=== PATIENT | male | born 1965 | race Caucasian/White ===

== ENCOUNTER 2017-12-09 02:33 | Observation (INO) ==
--- NOTE | 2017-12-09 02:53 | Emergency Department Note ---
Disposition Clinical Impression: Chest pain Qualifiers: Chest pain type: unspecified Qualified Code(s): R07.9 - Chest pain, unspecified Syncope Qualifiers: Syncope type: unspecified Qualified Code(s): R55 - Syncope and collapse Disposition: Admitted As Inpatient Condition: Good Time of Disposition: 05:58 Chest Pain HPI - General Chief Complaint: ED Chest Pain Stated Complaint: CP Time Seen by Provider: 12/09/17 02:52 Source: patient, EMS Mode of arrival: ambulatory Limitations: no limitations Vital Signs Reviewed: Yes Nursing Notes Reviewed: Yes - History of Present Illness HPI Narrative: Patient is a 52-year-old male with past medical history of hypertension. He presents today due to chest pain and syncope. Patient states that just prior to arrival, he began having similar chest pain rated as a pressure 10 out of 10 , also radiation to his left upper extremity. He had significant sweating and felt high. He states that he went to the front door to open it up and get some air. When doing so, his vision went black and he passed out. Family is present and states that they witnessed this and that he had 3 total episodes of syncope. Patient denies any previous cardiac history, denies any AL or stents. Denies any smoking or drug use. Denies any caffeine use. Denies any other fevers, nausea, vomiting, abdominal pain, numbness, tingling, weakness, changes of vision beside the tunnel vision. On my assessment, the patient currently states that he is asymptomatic. Rates his chest pain as 0 out of 10. Patient received aspirin 325 mg while in route via EMS. However, he did not receive any nitroglycerin at that time. Severity scale (1-10): 3 - Related Data Home Medications Medication Instructions Recorded Confirmed Gabapentin [Neurontin] 800 mg PO TID 06/19/17 11/20/17 Lisinopril [Zestril] 20 mg PO DAILY 06/19/17 11/20/17 Amitriptyline [Elavil] 25 mg PO DAILY 11/20/17 11/20/17 Clarithromycin [Biaxin] 500 mg PO BID 11/20/17 11/20/17 Oxycodone HCl/Acetaminophen 1 each PO Q8H PRN 11/20/17 11/20/17 [Percocet 7.5-325 mg Tablet] Pantoprazole Sodium [Protonix] 40 mg PO DAILY 11/20/17 11/20/17 metroNIDAZOLE [Flagyl] 500 mg PO TID 11/20/17 11/20/17 Previous Rx's Medication Instructions Recorded HYDROcodone/Acet 5/325 mg [[place] 1 tab PO Q6H PRN 5 Days #15 tab 11/20/17 5-325 mg] Ondansetron ODT [Zofran ODT] 4 mg SL Q6HR #10 tab.rapdis 11/20/17 Allergies Allergy/AdvReac Type Severity Reaction Status Date / Time No Known Allergies Allergy Verified 11/20/17 19:22 All systems ED: reviewed and negative except as stated. Constitutional: Denies: fever Cardiovascular: Reports: chest pain. Denies: palpitations Respiratory: Denies: cough, dyspnea, wheezes Gastrointestinal: Denies: abdominal pain, nausea, vomiting, diarrhea Genitourinary: Denies: urgency, dysuria, frequency Neurological: Denies: headache, weakness Endocrine: Reports: other (Sweating) Chest Pain PMH - Past Medical History Medical history: Reports: arthritis, GERD, hypertension, other Surgical history: Reports: orthopedic, other Psychiatric history: Reports: anxiety - Social History Smoking Status: Current every day smoker Alcohol use: Reports: rarely Drug use: Reports: none Physical Exam - General Limitations: no limitations General appearance: alert - Head Head exam: atraumatic, normocephalic, normal inspection - Eye Eye exam: Present: normal appearance, PERRL, EOMI - ENT ENT exam: normal exam, normal oropharynx, mucous membranes moist - Neck Neck exam: Present: normal inspection, full ROM, trachea midline - Chest Chest inspection: Present: normal inspection, symmetric chest wall rise. Absent : tenderness, rash - Respiratory Respiratory exam: Present: normal lung sounds bilaterally - Cardiovascular Cardiovascular exam: Present: regular rate, normal rhythm, normal heart sounds - Abdominal Exam Abdominal exam: Present: soft, Non-Tender. Absent: tenderness, distention, guarding, rebound, rigidity - Extremities Exam Extremities exam: Present: normal inspection, full ROM. Absent: tenderness, pedal edema - Neurological Exam Neurological exam: Present: alert, oriented X3, CN II-XII intact. Absent: motor sensory deficit - Psychiatric Psychiatric exam: Present: normal affect, normal mood - Skin Skin exam: Present: warm, dry, intact, normal color Course Course Narrative: Patient's systolic blood pressure was 110 on my exam. Otherwise, the rest of the vitals were within normal limits. Physical exam was benign. Patient was in no acute distress, heart regular rate and rhythm, lungs clear to auscultation , abdomen soft and nontender. Currently rating his chest pain is 0 out of 10. No neuro symptoms. NIH score of 0. I gave the patient a bolus of fluid due to systolic blood pressures in the 100s. Cardiac workup was obtained, troponin was negative, EKG showed normal sinus rhythm with no acute ST changes, chest x- ray was negative for any acute cardiopulmonary process. I discussed admission with the hospitalist due to chest pain and 3 episodes of syncope prior to arrival. Hospitalist requested a head CT scan and accepted the patient. Head CT scan negative for any acute intracranial process. Chest X-Ray 12/09/17 02:56 IMPRESSION: Negative portable chest. D/ / Musa Eckert MD / Musa Eckert MD Interpreting Provider: Musa Eckert MD Vital Signs Temperature 98.0 F 12/09/17 02:38 Pulse Rate 69 12/09/17 02:38 Respiratory Rate 18 12/09/17 02:38 Blood Pressure 109/64 12/09/17 02:38 O2 Sat by Pulse Oximetry 95 12/09/17 02:38 Temperature 98.0 F 12/09/17 02:38 Pulse Rate 59 12/09/17 05:49 Respiratory Rate 18 12/09/17 05:49 Blood Pressure 103/51 12/09/17 05:49 O2 Sat by Pulse Oximetry 95 12/09/17 05:49 Oxygen Delivery Oxygen Delivery Room Air Chest Pain - MDM Narrative Medical decision making narrative: Patient's systolic blood pressure was 110 on my exam. Otherwise, the rest of the vitals were within normal limits. Physical exam was benign. Patient was in no acute distress, heart regular rate and rhythm, lungs clear to auscultation , abdomen soft and nontender. Currently rating his chest pain is 0 out of 10. No neuro symptoms. NIH score of 0. I gave the patient a bolus of fluid due to systolic blood pressures in the 100s. Cardiac workup was obtained, troponin was negative, EKG showed normal sinus rhythm with no acute ST changes, chest x- ray was negative for any acute cardiopulmonary process. I discussed admission with the hospitalist due to chest pain and 3 episodes of syncope prior to arrival. Hospitalist requested a head CT scan and accepted the patient. Head CT scan negative for any acute intracranial process. - Medical Records Medical records reviewed: Yes I reviewed the patient's medical records. - Lab Data Lab results reviewed: Yes I reviewed the patient's lab results. Result diagrams: 12/09/17 02:54 12/09/17 02:54 Lab Results 12/09/17 12/09/17 12/09/17 Range/Units 02:37 02:54 02:54 WBC 14.6 H (4.3-11.1) K/mcL RBC 4.25 (4.19-5.50) M/mcL Hgb 13.3 (12.9-16.9) g/dL Hct 39.1 (37.5-50.1) % MCV 92.0 (83.0-100.0) fL MCH 31.3 (28.0-33.3) pg MCHC 34.0 (31.6-35.5) g/dL RDW 12.5 (11.5-14.5) % Plt Count 330 (140-400) K/mcL MPV 11.1 (9.4-12.4) fL Immature Gran % 0.5 (0-4) % Seg Neutrophils % 76.2 % Lymphocytes % 12.5 % Monocytes % 7.5 % Eosinophils % 2.5 % Basophils % 0.8 % Neutrophils # 11.2 H (1.6-8.9) K/mcL Lymphocytes # 1.8 (0.6-4.6) K/mcL Monocytes # 1.1 (0.0-1.3) K/mcL Eosinophils # 0.4 (0.0-0.6) K/mcL Basophils # 0.1 (0.0-0.2) K/mcL PT 11.0 (9.4-12.1) Seconds INR 1.0 APTT 30.2 (26.0-36.0) Seconds Sodium (136-145) mEq/L Potassium (3.5-5.1) mEq/L Chloride (98-107) mEq/L Carbon Dioxide (23-29) mEq/L BUN (6-20) mg/dL Creatinine (0.70-1.30) mg/dL Est GFR ( Amer) (> 60) Est GFR (Non-Af Amer) (> 60) BUN/Creatinine Ratio (6-26) Glucose (70-105) mg/dL POC Glucose 115 H (58-89) Calculated Osmolality (280-300) Calcium (8.6-10.3) mg/dL Troponin I (< 0.04) ng/mL 12/09/17 Range/Units 02:54 WBC (4.3-11.1) K/mcL RBC (4.19-5.50) M/mcL Hgb (12.9-16.9) g/dL Hct (37.5-50.1) % MCV (83.0-100.0) fL MCH (28.0-33.3) pg MCHC (31.6-35.5) g/dL RDW (11.5-14.5) % Plt Count (140-400) K/mcL MPV (9.4-12.4) fL Immature Gran % (0-4) % Seg Neutrophils % % Lymphocytes % % Monocytes % % Eosinophils % % Basophils % % Neutrophils # (1.6-8.9) K/mcL Lymphocytes # (0.6-4.6) K/mcL Monocytes # (0.0-1.3) K/mcL Eosinophils # (0.0-0.6) K/mcL Basophils # (0.0-0.2) K/mcL PT (9.4-12.1) Seconds INR APTT (26.0-36.0) Seconds Sodium 137 (136-145) mEq/L Potassium 3.6 (3.5-5.1) mEq/L Chloride 102 (98-107) mEq/L Carbon Dioxide 26 (23-29) mEq/L BUN 26 H (6-20) mg/dL Creatinine 1.49 H (0.70-1.30) mg/dL Est GFR ( Amer) > 60 (> 60) Est GFR (Non-Af Amer) 50 L (> 60) BUN/Creatinine Ratio 17 (6-26) Glucose 93 (70-105) mg/dL POC Glucose (58-89) Calculated Osmolality 288 (280-300) Calcium 9.3 (8.6-10.3) mg/dL Troponin I < 0.03 (< 0.04) ng/mL - Radiology Data Radiology results reviewed: Yes I reviewed the patient's radiology results. Chest X-Ray 12/09/17 02:56 IMPRESSION: Negative portable chest. D/ / Musa Eckert MD / Musa Eckert MD Interpreting Provider: Musa Eckert MD - EKG Data EKG attestation: Yes I reviewed and interpreted this EKG. EKG results narrative: 12/09/2017 at 02:39. Normal sinus rhythm. Rate 66. LA 180. QRS 92. QTc 4 and 44. Normal axis. No acute ST elevation or depression. No change from previous EKG on 06/11/2015. Heart Score - Score History: Moderately Suspicious EKG: Normal Age: 45-65 Risk Factors: 1-2 risk factors Troponin: Less than normal limit HEART Score Total: 3 S.B.A.R. - S.B.A.R. Situation: Demographics, MOA Background: Presenting Complaint, Relevant PMH, Meds, & Allergies Assessment: Vital Signs, Course and respsone to treatment, Exam Concerns, Patient/Family Expectation, Pertinant Lab Results, Outstanding Labs Recommendation: Barrier(s) to disposition, Recommendation based on pending studies, treatments, or consults S.B.A.R. Report Given to: Dr. Mathew Attestation Statement - Attestation Attestation: I, Wing Perry MD, personally evaluated this patient and discussed their management with the resident physician. I reviewed the resident's note and agree with the documented findings, medical decision making, and plan of care. 52-year-old male presents to the emergency department with a complaint of 3 syncopal episodes and chest pain this evening. He states he just felt dizzy and lightheaded and then passed out and woke up on the floor. His is present when these episodes happen but patient is unsure how long he was out. After the syncopal episodes he developed mid chest pain. No prior history of syncope. No history of heart disease. Denies any palpitations. On examination patient is a well-developed well-nourished well-appearing male in no acute distress. He is alert and oriented 3. There is no cyanosis or diaphoresis. He asked is nontender to palpation. Breath sounds are clear and equal bilaterally. Heart regular rate and rhythm. Abdomen soft and nontender with normal bowel sounds. No gross focal neurological deficits. Labs reviewed and unremarkable. Troponin normal. Chest x-ray negative. Head CT negative. EKG shows a normal sinus rhythm with ventricular rate of 66. No acute ST segment elevation or depression. The hospitalist, Dr. Mathew, was consulted and accepted admission of the patient.
[2017-12-09 03:03] LABS: Basophils # 0.1 K/mcL (0.0-0.2); Basophils % 0.8 %; Eosinophils # 0.4 K/mcL (0.0-0.6); Eosinophils % 2.5 %; Hematocrit 39.1 % (37.5-50.1); Hemoglobin 13.3 g/dL (12.9-16.9); Immature Granulocytes % 0.5 % (0-4); Lymphocytes # 1.8 K/mcL (0.6-4.6); Lymphocytes % 12.5 %; Mean Corpuscular Hemoglobin 31.3 pg (28.0-33.3); Mean Platelet Volume 11.1 fL (9.4-12.4); Monocytes # 1.1 K/mcL (0.0-1.3); Monocytes % 7.5 %; Neutrophils # 11.2 K/mcL (1.6-8.9); Platelet Count 330 K/mcL (140-400); Red Blood Count 4.25 M/mcL (4.19-5.50); Red Cell Distribution Width 12.5 % (11.5-14.5); Segmented Neutrophils % 76.2 %
[2017-12-09 03:19] LABS: Activated Partial Thrombo Time 30.2 Seconds (26.0-36.0)
[2017-12-09 03:24] LABS: BUN/Creatinine Ratio 17 (6-26); Blood Urea Nitrogen 26 mg/dL (6-20); Calcium 9.3 mg/dL (8.6-10.3); Carbon Dioxide 26 mEq/L (23-29); Chloride 102 mEq/L (98-107); Glucose 93 mg/dL (70-105); Osmolality,Calculated 288 (280-300); Potassium 3.6 mEq/L (3.5-5.1); Sodium 137 mEq/L (136-145); eGFR For African Americans > 60 (> 60); eGFR For Non-African Americans 50 (> 60)
[2017-12-09 03:25] LABS: Troponin I < 0.03 ng/mL (< 0.04)
[2017-12-09] MEDS ORDERED: 0.9 % Sodium Chloride 1,000 ML IVC ONE (04:06)
--- NOTE | 2017-12-09 05:41 | Internal Med History&Physical ---
<Minal Hollis - Last Filed: 12/09/17 06:31> Date of Encounter: 12/09/17 Time of Encounter: 05:38 Assessment and Plan (1) Chest pain Current visit: Yes Status: Acute 52 y M with GERD presenting with substernal chest pain. Pt does have risk factors for cardiac chest pain, including smoking status, age, and HTN. Associated concerning symptoms are presyncope and diaphoresis. Admit for further evaluation for ACS rule out, with ECG, troponins, echo. ACDVSD Risk assessment with lipid panel, and recommend subsequent evaluation for statin therapy. Qualifiers: Chest pain type: unspecified Qualified Code(s): R07.9 - Chest pain, unspecified (2) Syncope Current visit: Yes Status: Acute Given presentation, reasonable to rule out arrythmogenic cause of syncope. Continous tele monitoring. Orthostatic vital signs. Echo to r/o structural Disease. Carotid Duplex U/S. Fall precaution. Qualifiers: Syncope type: unspecified Qualified Code(s): R55 - Syncope and collapse (3) HTN (hypertension) Current visit: Yes Status: Acute Continue home meds. Qualifiers: Hypertension type: essential hypertension Qualified Code(s): I10 - Essential (primary) hypertension (4) Arthritis Current visit: Yes Status: Chronic Continue home meds. OARRS reviewed. (5) GERD (gastroesophageal reflux disease) Current visit: Yes Status: Acute Continue home meds. Qualifiers: Esophagitis presence: esophagitis presence not specified Qualified Code(s) : K21.9 - Gastro-esophageal reflux disease without esophagitis (6) DVT prophylaxis Current visit: Yes Status: Acute Per outpatient chart, pt reported blood in stool on 11/20/17. Given concern for possible hx of recent GI bleed, commence with mechanical prophylaxis (7) Tobacco abuse Current visit: Yes Status: Acute Encourage smoking cessation. Pt decline nicotine patch on admission. Internal Medicine - H&P: HPI Chief complaint: Chest pain Admitted From: Home Plans for Post Hospital Care: Home History of present illness: Mr. Guzman is a 52 year old male presenting with Hx of GERD, HTN, grade I esophageal varices diagnosed in Oct 2017, and anxiety presenting for syncopal episode, followed by chest pain yesterday evening. Patient states he was eating dinner with his yesterday evening, and while sitting begun to feel hot and sweaty. Pt stood up to get some fresh air, and prior to stepping out of the door of house states he felt dizzy and then lost consciousness. Pt fell on wooden floor. Patient does not know how long he was on floor, states he was oriented after regaining consciousness. Following LOC, he felt substernal chest pain and numbness down his left arm. An endorses feeling his hand "locked up". Endorses diaphoresis. States that chest pain was unrelieved by positional changes and did not worsen with movement. Chest pain did relieve with rest. He was given 4 aspirins in EMS, which she states did not improve chest pain. Patient denies any previous syncopal episodes. States patient's father of a heart attack at age 65. Pt is a smoker. Past Med Surg Social Fam HX - Past Medical History Medical history: arthritis, GERD, hypertension, other Psychiatric history: anxiety - Past Surgical History Surgical History: orthopedic, other - Social History Smoking Status: Current every day smoker Alcohol use: rarely Drug use: none Internal Medicine - H&P: Meds Gabapentin [Neurontin] 800 mg PO TID 06/19/17 [History] Lisinopril [Zestril] 20 mg PO DAILY 06/19/17 [History] Amitriptyline [Elavil] 25 mg PO DAILY 11/20/17 [History] Clarithromycin [Biaxin] 500 mg PO BID 11/20/17 [History] HYDROcodone/Acet 5/325 mg [[place] 5-325 mg] 1 tab PO Q6H PRN 5 Days #15 tab 11/20 [Rx] Ondansetron ODT [Zofran ODT] 4 mg SL Q6HR #10 tab.rapdis 11/20/17 [Rx] Oxycodone HCl/Acetaminophen [Percocet 7.5-325 mg Tablet] 1 each PO Q8H PRN 11/20 [History] Pantoprazole Sodium [Protonix] 40 mg PO DAILY 11/20/17 [History] metroNIDAZOLE [Flagyl] 500 mg PO TID 11/20/17 [History] 3 Allergy/AdvReac Type Severity Reaction Status Date / Time No Known Allergies Allergy Verified 11/20/17 19:22 All Systems PM: A 10-system review of systems was performed and is negative for pertinent findings except as documented above in the HPI. - Constitutional Vitals: Temp Pulse Resp BP Pulse Ox 98.0 F 65 18 98/54 94 12/09/17 02:38 12/09/17 04:35 12/09/17 04:35 12/09/17 04:35 12/09/17 04:35 General appearance: Present: cooperative, A&O X 3, no acute distress, answers questions appropriately - Head Head exam: Present: atraumatic, normocephalic - Respiratory Respiratory exam: Present: CTAB. Absent: accessory muscle use, chest wall tenderness, respiratory distress, wheezes - Cardiovascular Cardiovascular exam: Present: RRR, +S1, +S2. Absent: tachycardia - GI/Abdominal GI/Abdominal exam: Present: normal bowel sounds, soft. Absent: distended, guarding, rigid, tenderness, no peritoneal signs - Neurological Exam Neurological exam: Present: alert. Absent: facial droop, speech deficit - Psychiatric Psychiatric exam: Present: normal mood Internal Med - H&P Results - Labs CBC & Chem 7: 12/09/17 02:54 12/09/17 02:54 Labs: Short CBC 12/09/17 Range/Units 02:54 WBC 14.6 H (4.3-11.1) K/mcL Hgb 13.3 (12.9-16.9) g/dL Hct 39.1 (37.5-50.1) % Plt Count 330 (140-400) K/mcL Neutrophils # 11.2 H (1.6-8.9) K/mcL BMP 12/09/17 02:54 Sodium 137 Potassium 3.6 Chloride 102 Carbon Dioxide 26 BUN 26 H Creatinine 1.49 H Glucose 93 Calcium 9.3 Cardiac Enzymes 12/09/17 Range/Units 02:54 Troponin I < 0.03 (< 0.04) ng/mL - EKG Data EKG comments: ED EKG. Reviewed by Dr. Mathew. 12/09/2017 at 02:39. Normal sinus rhythm. Rate 66. [place] 180. QRS 92. QTc 444. - Impressions ITS Impressions Chest X-Ray 12/09/17 02:56 IMPRESSION: Negative portable chest. D/ / Musa Eckert MD / Musa Eckert MD Interpreting Provider: Musa Eckert MD <MathewChacha - Last Filed: 12/09/17 07:07> Date of Encounter: 12/09/17 Internal Medicine - H&P: HPI History of present illness: Mr. Guzman is a 52 year old male All Systems PM: A 10-system review of systems was performed and is negative for pertinent findings except as documented above in the HPI. - Constitutional Vitals: Temp Pulse Resp BP Pulse Ox 97.8 F 70 15 121/46 97 12/09/17 06:34 12/09/17 06:34 12/09/17 06:34 12/09/17 06:34 12/09/17 06:34 Internal Med - H&P Results - Labs CBC & Chem 7: 12/09/17 02:54 12/09/17 02:54 - Attending Attestation I have seen and examined this pt independently. I have discussed with Resident physician Dr Hollis regarding the management plan. Agree with the documentation.
[2017-12-09] MEDS ORDERED: Naloxone 0.4 MG/ML INJ IVP PRN (06:19)
[2017-12-09] MEDS ORDERED: Nitroglycerin 0.4 MG TAB.SUBL SL PRN (06:19)
[2017-12-09] MEDS ORDERED: *HR* OxyCODONE/APAP 7.5/325 TABLET PO PRN (06:28)
[2017-12-09] MEDS ORDERED: *HR* Dextrose 50 % in Water (Syg) 50 ML SYRINGE IVP PRN (06:57)
[2017-12-09] MEDS ORDERED: D5% in Water 1,000 ML IVC PRN (06:57)
[2017-12-09] MEDS ORDERED: Dextrose Gel 15 GM/37.5 ML TUBE PO PRN ×2 (06:57)
[2017-12-09] MEDS: 0.9 % Sodium Chloride 1,000 ML IVC SCH ×2 (07:57→21:20)
[2017-12-09] MEDS: Aspirin 81 MG TAB.CHEW PO SCH (07:57)
[2017-12-09] MEDS: Gabapentin 400 MG CAPSULE PO SCH ×3 (07:57→21:10)
[2017-12-09] MEDS ORDERED: Lisinopril 20 MG TABLET PO SCH (09:00)
[2017-12-09 15:23] LABS: Troponin I < 0.03 ng/mL (< 0.04)
[2017-12-09 15:39] LABS: BUN/Creatinine Ratio 21 (6-26); Blood Urea Nitrogen 23 mg/dL (6-20); Calcium 8.6 mg/dL (8.6-10.3); Carbon Dioxide 25 mEq/L (23-29); Chloride 108 mEq/L (98-107); Glucose 88 mg/dL (70-105); Osmolality,Calculated 291 (280-300); Potassium 3.9 mEq/L (3.5-5.1); Sodium 139 mEq/L (136-145); eGFR For African Americans > 60 (> 60); eGFR For Non-African Americans > 60 (> 60)
--- NOTE | 2017-12-10 00:51 | Internal Med Progress Note ---
Date of Encounter: 12/09/17 Time of Encounter: 16:07 - Assessment and plan (1) Chest pain Current Visit: Yes Status: Resolved Assessment and plan: Resolved. Cardiac enzymes trended negative x 3. Carotid duplex with only moderate 40-59% stenosis of left proximal ICA; otherwise normal. ECHO pending. Lipid panel pending; consider statin if needed. Qualifiers: Chest pain type: unspecified Qualified Code(s): R07.9 - Chest pain, unspecified (2) Syncope Current Visit: Yes Status: Resolved Assessment and plan: Resolved; no further episodes. Carotid duplex results as per above. ECHO pending. Still feeling a little weak today. Qualifiers: Syncope type: unspecified Qualified Code(s): R55 - Syncope and collapse (3) Acute kidney injury Current Visit: Yes Status: Resolved Assessment and plan: Resolved. Cr = 1.10 this afternoon. Continue to encourage PO hydration. (4) GERD (gastroesophageal reflux disease) Current Visit: Yes Status: Chronic Assessment and plan: Continue home medications. Qualifiers: Esophagitis presence: esophagitis presence not specified Qualified Code(s) : K21.9 - Gastro-esophageal reflux disease without esophagitis (5) HTN (hypertension) Current Visit: Yes Status: Chronic Assessment and plan: Continue home medications. Qualifiers: Hypertension type: essential hypertension Qualified Code(s): I10 - Essential (primary) hypertension (6) Tobacco abuse Current Visit: Yes Status: Chronic Assessment and plan: Counselled on smoking cessation. He declined nicotine patch. (7) Arthritis Current Visit: No Status: Chronic Assessment and plan: Continue home medications. (8) DVT prophylaxis Current Visit: Yes Status: Acute Assessment and plan: Continue SCDs (history of recent GI bleed in chart). - Time Spent With Patient less than 15 minutes - Subjective Interval history: Patient had no acute events overnight. He is sleeping peacefully in room full of family when I entered. He states that chest pain is resolved. He has had no further syncopal episodes. He still feels somewhat weak. He denies SOB, fever, chills, nausea, or vomiting. He has no new complaints. - Constitutional Vitals: Temp Pulse Resp BP Pulse Ox 99.1 F 59 13 119/59 91 12/09/17 23:37 12/09/17 23:37 12/09/17 23:37 12/09/17 23:37 12/09/17 23:37 General appearance: Present: cooperative, A&O X 3, pleasant, no acute distress, answers questions appropriately - Respiratory Respiratory exam: Present: CTAB. Absent: accessory muscle use, rales, rhonchi, wheezes Additional comments: Normal WOB - Cardiovascular Cardiovascular exam: Present: RRR, +S1, +S2. Absent: diastolic murmur, gallop, rubs, systolic murmur Additional comments: No BLE edema - GI/Abdominal GI/Abdominal exam: Present: normal bowel sounds, soft. Absent: distended, hepatomegaly, mass, splenomegaly, tenderness - Psychiatric Psychiatric exam: Present: normal affect, normal mood. Absent: anxious, depressed - Skin Skin exam: Present: dry, intact, warm. Absent: cyanosis, rash Internal Medicine: Result - Labs CBC & Chem 7: 12/10/17 05:46 12/10/17 05:46 Labs: BMP 12/09/17 14:46 Sodium 139 Potassium 3.9 Chloride 108 H Carbon Dioxide 25 BUN 23 H Creatinine 1.10 Glucose 88 Calcium 8.6 Cardiac Enzymes 12/09/17 12/09/17 Range/Units 09:10 14:46 Troponin I < 0.03 < 0.03 (< 0.04) ng/mL - ABG Interpretation ABG results: PT/INR, D-dimer PT 11.0 Seconds (9.4-12.1) 12/09/17 02:54 - VTE Reasons for not Prescribing Prophylaxis: Medical contraindication (History of recent GI bleed in chart) Documentation of Mechanical Device: Intermittent pneumatic compression device Consult Discharge Plan - Plan Referrals: Guadalupe Gamez CNP [Primary Care Provider] -
[2017-12-10 06:38] LABS: Basophils # 0.1 K/mcL (0.0-0.2); Basophils % 1.3 %; Eosinophils # 0.5 K/mcL (0.0-0.6); Eosinophils % 6.6 %; Hemoglobin 12.5 g/dL (12.9-16.9); Immature Granulocytes % 0.3 % (0-4); Lymphocytes # 2.3 K/mcL (0.6-4.6); Lymphocytes % 32.1 %; Mean Corpuscular HGB Conc 32.9 g/dL (31.6-35.5); Mean Corpuscular Hemoglobin 30.9 pg (28.0-33.3); Mean Corpuscular Volume 93.8 fL (83.0-100.0); Mean Platelet Volume 11.3 fL (9.4-12.4); Monocytes # 0.7 K/mcL (0.0-1.3); Monocytes % 10.1 %; Neutrophils # 3.5 K/mcL (1.6-8.9); Platelet Count 277 K/mcL (140-400); Red Blood Count 4.05 M/mcL (4.19-5.50); Red Cell Distribution Width 12.9 % (11.5-14.5); Segmented Neutrophils % 49.6 %
[2017-12-10 06:42] LABS: Prothrombin Time 10.7 Seconds (9.4-12.1)
[2017-12-10 07:00] LABS: BUN/Creatinine Ratio 21 (6-26); Blood Urea Nitrogen 23 mg/dL (6-20); Calcium 8.3 mg/dL (8.6-10.3); Carbon Dioxide 26 mEq/L (23-29); Chloride 112 mEq/L (98-107); Chol/HDL Ratio 3.9 (0-4.9); Cholesterol 160 mg/dL (< 200); Glucose 102 mg/dL (70-105); HDL Cholesterol 41 mg/dL (40-59); LDL Cholesterol,Calculated 101 mg/dL (0-99); Magnesium 2.3 mg/dL (1.6-2.6); Osmolality,Calculated 296 (280-300); Potassium 4.1 mEq/L (3.5-5.1); Sodium 141 mEq/L (136-145); Triglycerides 91 mg/dL (< 150); eGFR For African Americans > 60 (> 60); eGFR For Non-African Americans > 60 (> 60)
[2017-12-10] MEDS: Gabapentin 400 MG CAPSULE PO SCH ×2 (10:09→14:54)
[2017-12-10] MEDS: Aspirin 81 MG TAB.CHEW PO SCH (10:09)
[2017-12-10 15:50] VITALS: BP 148/92
--- NOTE | 2017-12-10 16:46 | Discharge Summary ---
- NOTES TO OUTPATIENT PROVIDER Notes to Outpatient Provider: Follow up with PCP in 2-3 days after discharge. PCP can follow up on ECHO results from hospitalization. Orders not resulted at time of discharge: Pending orders 12/09/17 17:30 abdominal ultrasound [US abdomen complete] [US] Routine 12/11/17 04:00 BMP [Basic Metabolic Panel] AM 0400 CBC [Complete Blood Count] [HEME] AM 0400 Date of Encounter: 12/10/17 Time of Encounter: 16:42 - Discharge Diagnosis (1) Chest pain Priority: Primary Status: Resolved Qualifiers: Chest pain type: unspecified Qualified Code(s): R07.9 - Chest pain, unspecified (2) Syncope Priority: Secondary Status: Resolved Qualifiers: Syncope type: unspecified Qualified Code(s): R55 - Syncope and collapse (3) Acute kidney injury Priority: Secondary Status: Resolved (4) GERD (gastroesophageal reflux disease) Priority: Secondary Status: Chronic Qualifiers: Esophagitis presence: esophagitis presence not specified Qualified Code(s) : K21.9 - Gastro-esophageal reflux disease without esophagitis (5) HTN (hypertension) Priority: Secondary Status: Chronic Qualifiers: Hypertension type: essential hypertension Qualified Code(s): I10 - Essential (primary) hypertension (6) Tobacco abuse Priority: Secondary Status: Chronic (7) Arthritis Priority: Secondary Status: Chronic (8) DVT prophylaxis Priority: Secondary Status: Acute Hospital course: Mr. Guzman is a 52 year old male admitted for chest pain and syncope. He was admitted for observation to general medical floor with telemetry. Cardiac enzymes trended negative x 3. He had no further chest pain or syncope after admission. He had BHAVIK on admission that resolved with IV NS bolus and oral hydration. Carotid duplex showed only moderate 40-59% stenosis of left proximal ICA; otherwise normal. ECHO results are pending read by director of product management, who is not available until tomorrow. Lipid panel showed borderline normal LDL. He was counselled on heart health, low fat and cholesterol diet. He states that he is back to his normal self today and is adamant about going home. He will follow up with his PCP in 2-3 days after discharge. PCP can follow up on inpatient ECHO results. Patient has met maximum benefit of this hospitalization and will be discharged home in stable condition. Discharge discussed with: patient, family, nurse - Time Spent with Patient Total time spent providing and/or coordinating discharge services: Less than 30 minutes - Discharge Medications Home Medications: Gabapentin [Neurontin] 800 mg PO TID 06/19/17 [History] Lisinopril [Zestril] 20 mg PO DAILY 06/19/17 [History] Amitriptyline [Elavil] 25 mg PO DAILY 11/20/17 [History] Oxycodone HCl/Acetaminophen [Percocet 7.5-325 mg Tablet] 1 each PO Q8H PRN 11/20 [History] Pantoprazole Sodium [Protonix] 40 mg PO DAILY 11/20/17 [History] Allergies/Adverse Reactions: 3 Allergy/AdvReac Type Severity Reaction Status Date / Time No Known Allergies Allergy Verified 12/09/17 16:07 Date of admission: 12/09/17 05:52 Primary care physician: Guadalupe Gamez CNP Discharging clinician: Todd Genao Anticipated date of discharge: 12/10/17 - Constitutional Vitals: Temp Pulse Resp BP Pulse Ox 97.9 F 60 15 148/92 93 12/10/17 15:49 12/10/17 15:49 12/10/17 15:49 12/10/17 15:49 12/10/17 15:49 General appearance: Present: cooperative, A&O X 3, pleasant, no acute distress, answers questions appropriately - Respiratory Respiratory exam: Present: CTAB. Absent: accessory muscle use, rales, rhonchi, wheezes Additional comments: Normal WOB - Cardiovascular Cardiovascular exam: Present: RRR, +S1, +S2. Absent: diastolic murmur, gallop, rubs, systolic murmur Additional comments: No BLE edema - GI/Abdominal GI/Abdominal exam: Present: normal bowel sounds, soft. Absent: distended, hepatomegaly, mass, splenomegaly, tenderness - Psychiatric Psychiatric exam: Present: normal affect, normal mood. Absent: anxious, depressed - Skin Skin exam: Present: dry, intact, warm. Absent: cyanosis, rash - Patient Status Disposition: Home, Self-Care Condition: Good Functional capacity at discharge: independent ambulation Overall status at discharge: patient is back to baseline - Discharge Instructions Instructions: Chest Pain (DC), Syncope (DC), Chronic Hypertension (DC), Cigarette Smoking and Your Health, Loan Counselor (GEN) Follow Up With: Guadalupe Gamez CNP [Primary Care Provider] - Additional Instructions: Follow up with PCP in 2-3 days after discharge. PCP can follow up on ECHO results from hospitalization. - Diet and Activity Activity: resume usual activities as tolerated Diet: low fat, low cholesterol, low salt diet, other (Cardiac) - VTE Reasons for not Prescribing Prophylaxis: Medical contraindication (History of recent GI bleed in chart) Documentation of Mechanical Device: Intermittent pneumatic compression device
--- NOTE | 2017-12-13 18:28 | Electrocardiograph Report ---
[address] [place], [place] [address] Test Date: 2017-12-09 Pat Name: Jostin Guzman Department: 104 Room: 2NE27 Gender: M Hospital Insurance Representative: [facility] : 1965 Requested By: Eduin Kemp Order Number: [id number] Reading MD: Lele German MD Measurements Intervals [place] Rate: 66 P: 33 TN: 180 QRS: 56 QRSD: 92 T: 45 QT: 430 QTc: 444 Interpretive Statements SINUS RHYTHM Electronically Signed On 12-13-2017 18:27:19 EDT by Lele German MD
== END 2017-12-10 17:02 | disposition home or self-care (01) ==
LOC: EMEROO 02:33 → 2NENU 02:33
PROVIDERS: ADMIT Internal Medicine; ATTEND Family Medicine